=== PATIENT | female | born 1975 | race Two or more races ===

== ENCOUNTER 2025-07-06 12:54 | Inpatient (IN) | payer OTHER ==
[~2025-07-06] VITALS: Ht 162.6 cm; Wt 112.5 kg
[2025-07-06 13:58] LABS: CALCIUM, SERUM 9.4 mg/dL (8.5-10.1); CREATININE 0.7 mg/dL (0.6-1.3); SODIUM SERUM 137 mmol/L (136-145); UREA NITROGEN, BLOOD 10 mg/dL (7-18)
[2025-07-06 14:17] LABS: PLATELET COUNT (AUTO) 171 K/uL (150-450); RED BLOOD CELL COUNT(AUTO) 4.25 MIL/uL (4.0-5.2); RED CELL DISTRIBUTION WIDTH 14.5 % (11.5-15.0); WHITE BLOOD COUNT (AUTO) 5.9 K/uL (4.3-11.0)
[2025-07-06] MEDS: IV NS 0.9% 1,000 ML BAG IV ONE (14:50)
[2025-07-06] MEDS ORDERED: ASPIRIN 81 MG TAB.CHEW ONE (16:11)
[2025-07-06] MEDS: ASPIRIN 81 MG TAB.CHEW PO ONE (16:27)
[2025-07-06] MEDS ORDERED: Acyclovir PO (17:13)
[2025-07-06] MEDS ORDERED: CHOL500052 PO (17:13)
[2025-07-06] MEDS ORDERED: FOLI0.4T6 PO (17:13)
[2025-07-06] MEDS ORDERED: GILT40TA PO (17:13)
[2025-07-06] MEDS ORDERED: HYDROCODONE/APAP 5/325MG TABLET PO PRN (18:30)
[2025-07-06] MEDS ORDERED: MAGNESIUM HYDROXIDE 30 ML UDC PO PRN (18:30)
[2025-07-06] MEDS ORDERED: ZOLPIDEM TARTRATE 5 MG TABLET PO PRN (18:30)
[2025-07-06] MEDS ORDERED: ONDANSETRON HCL/PF 4 MG/2 ML VIAL IVP PRN (18:30)
[2025-07-06] MEDS ORDERED: MAG HYDROX/AL HYDROX/SIMETH 30 ML UDC PO PRN (18:30)
[2025-07-06] MEDS ORDERED: ACETAMINOPHEN 325 MG TABLET PO PRN (18:30)
[2025-07-06] MEDS: IV NS 0.9% 1,000 ML IV PRN (20:55)
[2025-07-06 21:00] VITALS: BP_SYST 138; BP_SYST 141; BP_SYST 152; BP_DIAS 76; BP_DIAS 80; BP_DIAS 84; TEMP 98.2; O2SAT 97
[2025-07-06 21:30] VITALS: BP 141/76; TEMP 98.2; O2SAT 97
[2025-07-06 23:51] VITALS: BP 127/71; TEMP 98.4; O2SAT 97
[2025-07-07] VITALS: BP 127/71; TEMP 98.4; O2SAT 97
[2025-07-07] MEDS: ENOXAPARIN SODIUM 120 MG/0.8 ML DISP.SYRIN SQ SCH ×2 (00:30→12:50)
[2025-07-07] MEDS: ENOXAPARIN SODIUM 60 MG/0.6 ML DISP.SYRIN SQ SCH ×2 (01:04→01:05)
[2025-07-07 04:00] VITALS: BP 127/80; TEMP 97.3; O2SAT 98
[2025-07-07 07:30] VITALS: BP 143/82; TEMP 98.2; O2SAT 95
[2025-07-07 07:39] LABS: PLATELET COUNT (AUTO) 165 K/uL (150-450); RED BLOOD CELL COUNT(AUTO) 4.05 MIL/uL (4.0-5.2); RED CELL DISTRIBUTION WIDTH 14.5 % (11.5-15.0); WHITE BLOOD COUNT (AUTO) 5.4 K/uL (4.3-11.0)
[2025-07-07 07:47] LABS: CREATININE 0.7 mg/dL (0.6-1.3); PHOSPHORUS 3.2 mg/dL (2.5-4.9); SODIUM SERUM 143.0 mmol/L (136-145); UREA NITROGEN, BLOOD 8.0 mg/dL (7-18)
[2025-07-07 08:22] LABS: CALCIUM, SERUM 9.2 mg/dL (8.5-10.1)
[2025-07-07] MEDS: ASPIRIN 81 MG TAB.CHEW PO SCH (08:28)
[2025-07-07] MEDS: PANTOPRAZOLE 40 MG TABLET.DR PO SCH (08:28)
[2025-07-07] MEDS ORDERED: ERGOCALCIFEROL (VITAMIN D 2) 50,000 UNIT CAPSULE PO SCH (09:00)
[2025-07-07 09:24] LABS: LDL 85.0 mg/dL (0-99)
[2025-07-07] MEDS ORDERED: IV NS 0.9% 250 ML IV ONE (10:45)
[2025-07-07] MEDS ORDERED: IOHEXOL-350 100 ML VIAL IV ONE (10:45)
[2025-07-07] MEDS: IV NS 0.9% 1,000 ML IV PRN (12:55)
[2025-07-07] MEDS: [UNRECOGNIZED DRUG - OTHER] PO SCH (12:56)
[2025-07-07 16:00] VITALS: BP 121/68; TEMP 98.1; O2SAT 97
[2025-07-07] MEDS: ACYCLOVIR 200 MG CAPSULE PO SCH (17:36)
[2025-07-07 20:00] VITALS: BP 143/77; TEMP 97.3; O2SAT 98
[2025-07-07 20:05] VITALS: BP 143/77; TEMP 97.3; O2SAT 98
[2025-07-08] VITALS: BP 128/70; TEMP 98.2; O2SAT 95
[2025-07-08 00:21] VITALS: BP 128/70; TEMP 98.2; O2SAT 95
[2025-07-08 04:00] VITALS: BP 133/76; TEMP 97.9; O2SAT 99
[2025-07-08 04:48] VITALS: BP 133/76; TEMP 97.9; O2SAT 99
[2025-07-08 06:31] LABS: CALCIUM, SERUM 9.4 mg/dL (8.5-10.1); CREATININE 0.7 mg/dL (0.6-1.3); SODIUM SERUM 145 mmol/L (136-145); UREA NITROGEN, BLOOD 8 mg/dL (7-18)
[2025-07-08 08:00] VITALS: BP 123/79; TEMP 97.9; O2SAT 97
[2025-07-08] MEDS: FOLIC ACID 1 MG TABLET PO SCH (09:27)
[2025-07-08 12:00] VITALS: BP 139/84; TEMP 98.4; O2SAT 97
== END 2025-07-08 12:20 | disposition home or self-care (01) | DRG 640 ==
LOC: ER 13:07 → TELE 18:29
PROVIDERS: ADMIT Nurse Practitioner Acute Care; ATTEND Nurse Practitioner Acute Care
DX: E86.0 Dehydration (principal); I21.A1 Myocardial infarction type 2; C95.91 Leukemia, unspecified, in remission; Z68.41 Body mass index [BMI] 40.0-44.9, adult; R55 Syncope and collapse; R73.03 Prediabetes; E66.01 Morbid (severe) obesity due to excess calories; Z88.0 Allergy status to penicillin; Z20.822 Contact with and (suspected) exposure to COVID-19; G47.33 Obstructive sleep apnea (adult) (pediatric); Z79.899 Other long term (current) drug therapy
CPT/HCPCS: 36415; 71045-TC; 80048-TC; 80061-TC; 83735-TC; 84100-TC; 84443-TC; 84484-TC; 84702-TC; 85025-TC; 93307-TC; 93970-TC; G0378; J1650; J7030; J7050; Q9967